=== PATIENT | female | born 1970 | race American Indian/Alaskan Native ===

== ENCOUNTER 2016-06-03 04:39 | Inpatient (IN) | payer SELFPAY ==
[2016-06-03] MEDS ORDERED: PROVENTIL IH ONE ×2 (04:59→06:24)
[2016-06-03] MEDS ORDERED: ATROVENT IH ONE ×2 (05:00→06:24)
[2016-06-03 05:47] LABS: Basophils % (Auto) 0.5 % (0.0-1.8); Eosinophils % (Auto) 2.6 % (0.0-4.3); Hematocrit 45.4 % (30.3-42.9); Hemoglobin 14.4 gm/dl (10.1-14.3); Mean Corpuscular HGB Conc 32 % (30-34); Mean Corpuscular Hemoglobin 28 pg (28-32); Mean Corpuscular Volume 87 fl (79-97); Platelet Count 185 K/mm3 (140-440); Red Blood Count 5.22 M/mm3 (3.65-5.03); Red Cell Distribution Width 14.7 % (13.2-15.2); White Blood Count 8.8 K/mm3 (4.5-11.0)
[2016-06-03 06:11] LABS: Anion Gap 18 mmol/L; BUN/Creatinine Ratio 5.55; Blood Urea Nitrogen 5 mg/dL (7-17); Calcium 8.8 mg/dL (8.4-10.2); Carbon Dioxide 22 mmol/L (22-30); Chloride 105.6 mmol/L (98-107); Glucose 144 mg/dL (65-100); Potassium 3.7 mmol/L (3.6-5.0); Sodium 142 mmol/L (137-145)
--- NOTE | 2016-06-03 06:29 | Emergency Department Report ---
HPI - General Chief Complaint: Dyspnea/Respdistress Time Seen by Provider: 06/03/16 06:17 - HPI HPI: Room 20 The patient is a 45-year-old female presenting with a chief complaint of shortness of breath. The patient states yesterday at 13:00 she developed wheezing and a cough productive of clear sputum the patient states she was recently diagnosed with asthma one week ago. The patient states she was unable to catch her breath and subsequently EMS was called. EMS states the patient had a room air sat of 89% upon arrival. The patient was administered magnesium sulfate 2 g IV and Solu-Medrol 125 mg IV. The patient is currently on BiPAP states she feels much improved from when her symptoms started. Patient denies any history of fever or chest pain Location: Lungs Duration: Constant since 13:00 yesterday Quality: Shortness of breath Severity: Moderate Modifying factors: [see above] Context: [see above] Mode of transportation: [not driving] ED Past Medical Hx - Past Medical History Previous Medical History?: Yes Hx Asthma: Yes (diagnosed 2016) - Surgical History Past Surgical History?: Yes - Family History Family history: no significant - Social History Smoking Status: Former Smoker (none times one month) Substance Use Type: None (denies illicit drug use), Alcohol (occasional) - Medications Home Medications: Home Medications Medication Instructions Recorded Confirmed Last Taken Type Albuterol Sulfate [Albuterol 0.63% 0.63 mg IH TID PRN #1 box 05/18/16 06/03/16 Unknown Rx NEBS] Albuterol Sulfate [Ventolin HFA] 2 puff INHALATION DAILY PRN #1 05/18/16 Unknown Rx hfa.[email or web address] MDD 10 puffs Ipratropium [Atrovent NEB] 0.5 mg IH Q8HRT #1 box 05/18/16 Unknown Rx ED Review of Systems ROS: Stated complaint: SUJEY Other details as noted in HPI Comment: All other systems reviewed and negative Constitutional: denies: chills, fever Eyes: denies: eye pain, eye discharge, vision change ENT: denies: ear pain, throat pain Respiratory: cough, shortness of breath, wheezing Cardiovascular: denies: chest pain, palpitations Endocrine: no symptoms reported Gastrointestinal: denies: abdominal pain, nausea, diarrhea Genitourinary: denies: urgency, dysuria, discharge Musculoskeletal: denies: back pain, joint swelling, arthralgia Skin: denies: rash, lesions Neurological: denies: headache, weakness, paresthesias Psychiatric: denies: anxiety, depression Hematological/Lymphatic: denies: easy bleeding, easy bruising Physical Exam - Physical Exam Vital Signs: Vital Signs 06/03/16 06/03/16 04:46 05:15 Temperature 98.6 F Pulse Rate 104 H 116 H Respiratory 29 H 38 H Rate Blood Pressure 127/85 130/83 O2 Sat by Pulse 100 98 Oximetry Physical Exam: GENERAL: The patient is well-developed well-nourished female sitting on stretcher receiving BiPAP resting comfortably. [] HEENT: Normocephalic. Atraumatic. Extraocular motions are intact. Patient has moist mucous membranes. NECK: Supple. Trachea midline There is no adenopathy noted. CHEST/LUNGS: Diffuse wheezing. HEART/CARDIOVASCULAR: Regular. There is tachycardia. There is no gallop rub or murmur. ABDOMEN: Abdomen is soft, nontender. Patient has normal bowel sounds. There is no abdominal distention. SKIN: There is no rash. There is no diaphoresis. NEURO: The patient is awake, alert, and oriented. The patient is cooperative. The patient has normal speech MUSCULOSKELETAL: There is no evidence of acute injury. ED Course Vital Signs 06/03/16 06/03/16 04:46 05:15 Temperature 98.6 F Pulse Rate 104 H 116 H Respiratory 29 H 38 H Rate Blood Pressure 127/85 130/83 O2 Sat by Pulse 100 98 Oximetry ED Medical Decision Making - Lab Data Result diagrams: 06/03/16 05:38 06/03/16 04:52 Laboratory Results - last 24 hr 06/03/16 06/03/16 04:52 05:38 WBC 8.8 RBC 5.22 H Hgb 14.4 H Hct 45.4 H MCV 87 MCH 28 MCHC 32 RDW 14.7 Plt Count 185 Lymph % (Auto) 13.9 [place] % (Auto) 4.1 Eos % (Auto) 2.6 Baso % (Auto) 0.5 Lymph # 1.2 [place] # 0.4 Eos # 0.2 Baso # 0.0 Seg Neutrophils % 78.9 H Seg Neutrophils # 6.9 Sodium 142 Potassium 3.7 Chloride 105.6 Carbon Dioxide 22 Anion Gap 18 BUN 5 L Creatinine 0.9 Estimated GFR > 60 BUN/Creatinine Ratio 5.55 Glucose 144 H Calcium 8.8 Troponin T < 0.010 - EKG Data -: EKG Interpreted by Me EKG shows normal: sinus rhythm Rate: normal - EKG Data When compared to previous EKG there are: previous EKG unavailable Interpretation: other (no ischemic changes seen) - Radiology Data Radiology results: image reviewed (chest x-ray) interpreted by me: Chest x-ray-no focal infiltrates, no pneumothorax - Differential Diagnosis COPD, asthma exacerbation, shortness of breath, ACS, pneumonia Critical care attestation.: If time is entered above; I have spent that time in minutes in the direct care of this critically ill patient, excluding procedure time. ED Disposition Clinical Impression: Acute asthma exacerbation, Difficulty breathing Disposition: OP ADMITTED IP TO THIS HOSP Is pt being admited?: Yes Does the pt Need Aspirin: Yes Condition: Fair Time of Disposition: 06:30 (hospitalist paged)
--- NOTE | 2016-06-03 07:17 | XRay Report ---
AP CHEST: HISTORY: Shortness of breath AP view of the chest demonstrates a normal mediastinal and cardiac contour with clear lungs and normal bony and soft tissue structures. IMPRESSION: Unremarkable AP chest. No change since 05/16/16.
--- NOTE | 2016-06-03 08:22 | Admit Criteria Form ---
Admission Criteria Documentation: ASTHMA Clinical Indications for Admission to Inpatient Care (Place 'X' for any and all applicable criteria): Admission is indicated for ANY ONE of the following (1)(2)(3)(4)(5): [ ]I. Absent or markedly diminished breath sounds (silent chest) [ ]II. Oxygen saturation < 92% [ ]III. PaCO2 = / > 42 mm Hg (5.6 kPa) [ ]IV. Peak expiratory flow rate < 40% of predicted or personal best after treatment. [ ]V. Peak expiratory flow rate < 33% of predicted or personal before after treatment [ ]. Change in mental status [ ]VII. Ventilatory support required [ ]VIII. PaO2 < 60 mm Hg (8.0 kPa) [ ]IX. Cyanosis [ ]X. Cardiac dysrhythmia (e.g., bradycardia) [ ]XI. Hemodynamic instability [ ]XII. Radiographic evidence of complication requiring inpatient treatment (e.g., pneumonia, pneumothorax) [X ]XIII. Inpatient admission required rather than observation care (also use Asthma: Observation Care guideline as appropriate) because of ANY ONE of the following: [X ]a) Respiratory finding that is severe or persistent (eg, dyspnea, tachypnea, accessory muscle use) [ ]b) Airflow measurements less than 60% of predicted or personal best that persist (e.g., over 24 hours) or worsen despite treatments [ ]c) Supplemental oxygen or respiratory treatments for over 24 hours that are performable only in acute inpatient setting [ ]d) Other condition, treatment or monitoring requiring inpatient admission. Extended stay beyond goal length of stay may be needed for (26)(27)(28): [ ]a) Severe respiratory failure (23) (29) (30) [ ]b) Secondary causes and complications (25) [ ]c) Status asthmaticus [ ]d) Chronic obstructive asthma [ ]e) Older patients (29) [ ]f) Slow resolution [ ]g) Clinically significant exacerbation of comorbidities (eg, kathy. heart failure, atrial fibrillation) The original [employer] content created by [email or web address] has been revised. The portions of the content which have been revised are identified through the use of italic text or in bold, and [employer] has neither reviewed nor approved the modified material. All other unmodified content is copyright [employer] Please see references footnoted in the original [facility] edition 2016 Admission Criteria Met: Yes
--- NOTE | 2016-06-03 09:07 | History and Physical Report ---
Medications and Allergies Allergies Allergy/AdvReac Type Severity Reaction Status Date / Time No Known Allergies Allergy Verified 02/28/16 00:13 Home Medications Medication Instructions Recorded Confirmed Last Taken Type Albuterol Sulfate [Albuterol 0.63% 0.63 mg IH TID PRN #1 box 05/18/16 06/03/16 Unknown Rx NEBS] Albuterol Sulfate [Ventolin HFA] 2 puff INHALATION DAILY PRN #1 05/18/16 Unknown Rx hfa.[email or web address] MDD 10 puffs Ipratropium [Atrovent NEB] 0.5 mg IH Q8HRT #1 box 05/18/16 Unknown Rx Active Meds: Active Medications Acetaminophen (Tylenol) 650 mg PO Q4H PRN PRN Reason: Pain MILD(1-3)/Fever >100.5/MALLORY Bisacodyl (Dulcolax) 10 mg NM QDAY PRN PRN Reason: Constipation unrelieved by MOM Magnesium Hydroxide (Milk Of Magnesia) 30 ml PO Q4H PRN PRN Reason: Constipation Exam - Constitutional Vitals: Temp Pulse Resp BP Pulse Ox 98.6 F 103 H 18 111/73 98 06/03/16 04:46 06/03/16 08:00 06/03/16 08:00 06/03/16 08:00 06/03/16 08:00 Results - Labs CBC & Chem 7: 06/03/16 05:38 06/03/16 04:52 Labs: Abnormal lab results 06/03/16 06/03/16 Range/Units 04:52 05:38 RBC 5.22 H (3.65-5.03) M/mm3 Hgb 14.4 H (10.1-14.3) gm/dl Hct 45.4 H (30.3-42.9) % Seg Neutrophils % 78.9 H (40.0-70.0) % BUN 5 L (7-17) mg/dL Glucose 144 H (65-100) mg/dL
[2016-06-03] MEDS ORDERED: ZOFRAN IV PRN (10:00)
[2016-06-03] MEDS ORDERED: TYLENOL PO PRN (10:00)
[2016-06-03] MEDS ORDERED: DULCOLAX PR PRN (10:00)
[2016-06-03] MEDS ORDERED: MILK OF MAGNESIA PO PRN (10:00)
[2016-06-03] MEDS ORDERED: PROVENTIL IH PRN (10:36)
[2016-06-03 12:46] LABS: ISTAT Base Excess -6; ISTAT PH 7.307 (7.35-7.45); ISTAT PO2 108 (80-105); ISTAT SO2 98; ISTAT TCO2 21
[2016-06-03] MEDS: DUONEB 0.5 MG-3 MG/3 ML SOLN IH SCH ×2 (13:20→20:25)
[2016-06-04] MEDS: DUONEB 0.5 MG-3 MG/3 ML SOLN IH SCH ×2 (09:46→14:18)
[2016-06-04 15:24] VITALS: BP 110/71
--- NOTE | 2016-06-04 16:42 | Discharge Summary ---
Providers - Providers Date of Admission: 06/03/16 09:04 Attending physician: TONYA CALLES Primary care physician: METAL LEAF LAYER Hospitalization Condition: Fair Disposition: STILL A PATIENT Exam - Constitutional Vitals: Temp Pulse Resp BP Pulse Ox 98.3 F 86 20 110/71 100 06/04/16 14:50 06/04/16 14:50 06/04/16 14:50 06/04/16 14:50 06/04/16 07:25 Plan Follow up with: PRIMARY CARE, [Primary Care Provider] - 3-5 Days Prescriptions: Azithromycin [Zithromax TAB] 250 mg PO QDAY #6 tablet Prednisone [predniSONE 10 mg (6-Day Pack, 21 Tabs)] 10 mg PO .TAPER #1 tab.ds.pk
== END 2016-06-04 17:55 | disposition home or self-care (01) | DRG 203 ==
LOC: ED 04:39 → 3A 09:04
PROVIDERS: ADMIT Internal Medicine; ATTEND Internal Medicine
PROC: 5A09357 Assistance with Respiratory Ventilation, Less than 24 Consecutive Hours, Continuous Positive Airway Pressure (ICD-10-PCS; principal; 2016-06-03)
DX: J45.901 Unspecified asthma with (acute) exacerbation (principal); Z87.891 Personal history of nicotine dependence
CPT/HCPCS: 36415; 36600; 71010; 80048; 82803; 84484; 85025; 85379; 93005; 93010; 94640; 94644; 94760; 99406; J2920

== ENCOUNTER 2016-06-11 15:58 | Emergency (ER) | payer SELFPAY ==
[2016-06-11 16:34] VITALS: BP 133/80
[2016-06-11] MEDS ORDERED: PROVENTIL IH ONE (20:22)
--- NOTE | 2016-06-11 20:53 | Emergency Department Report ---
HPI - General Chief Complaint: Dyspnea/Respdistress Time Seen by Provider: 06/11/16 20:22 - HPI HPI: 45-year-old Afro[place] female presents to the emergency department from home by EMS with a complaint of shortness of breath. Patient was found to have an oxygen saturation of 89% on room air. She was given 10 mg of albuterol, 125 mg of Solu-Medrol and placed on oxygen. Patient is now on the emergency department and has been multiple hours since his medications and says she is feeling better. She did not have any chest pain, fever, back pain, diaphoresis , nausea or vomiting. Patient does have a recent diagnosis of asthma. She was recently admitted to [facility] for the same symptoms. When she was discharged home she was given a prescription for steroids but never had it filled secondary to the cost. She has been using her albuterol inhaler and nebulized treatments at home without much relief. ED Past Medical Hx - Past Medical History Hx Congestive Heart Failure: No Hx Diabetes: No Hx Pulmonary Embolism: No Hx Sickle Cell Disease: No Hx Asthma: Yes Hx COPD: No Hx Tuberculosis: No Hx HIV: No - Social History Smoking Status: Never Smoker Substance Use Type: None - Medications Home Medications: Home Medications Medication Instructions Recorded Confirmed Last Taken Type Azithromycin [Zithromax TAB] 250 mg PO QDAY #6 tablet 06/04/16 06/11/16 Unknown Rx Prednisone [predniSONE 10 mg 10 mg PO .TAPER #1 tab.ds.pk 06/04/16 06/11/16 Unknown Rx (6-Day Pack, 21 Tabs)] Albuterol Sulfate [Albuterol 0.63% 0.63 mg IH TID PRN #1 box 06/11/16 Unknown Rx NEBS] Albuterol Sulfate [Ventolin HFA] 2 puff INHALATION DAILY PRN #1 06/11/16 Unknown Rx [email or web address] MDD 10 puffs Ipratropium [Atrovent NEB] 0.5 mg IH Q8HRT #1 box 06/11/16 Unknown Rx ED Review of Systems ROS: Stated complaint: SUJEY/ASTHMA Other details as noted in HPI Comment: All other systems reviewed and negative Constitutional: denies: chills, fever Eyes: denies: eye pain, eye discharge, vision change ENT: denies: ear pain, throat pain Respiratory: cough, shortness of breath, wheezing Cardiovascular: denies: chest pain, palpitations Gastrointestinal: denies: abdominal pain, nausea, diarrhea Genitourinary: denies: urgency, dysuria, discharge Musculoskeletal: denies: back pain, joint swelling, arthralgia Skin: denies: rash, lesions Neurological: denies: headache, weakness, paresthesias Physical Exam - Physical Exam Vital Signs: Vital Signs 06/11/16 06/11/16 06/11/16 16:30 17:30 17:33 Temperature 98 F Pulse Rate 122 H 110 H Respiratory 24 20 20 Rate Blood Pressure 133/80 O2 Sat by Pulse 92 100 100 Oximetry Physical Exam: GENERAL: The patient is well-developed well-nourished. HEENT: Normocephalic. Atraumatic. Extraocular motions are intact. Patient has moist mucous membranes. Pupils equal reactive to light bilaterally. NECK: Supple. Trachea is midline. CHEST/LUNGS: Mild to moderate wheezing throughout the chest. Mild tachypnea without accessory muscle use. No conversational dyspnea. There is no respiratory distress noted. HEART/CARDIOVASCULAR: Regular. There is mild tachycardia. There is no gallop rub or murmur. ABDOMEN: Abdomen is soft, nontender. Patient has normal bowel sounds. There is no abdominal distention. SKIN: There is no rash. There is no edema. There is no diaphoresis. NEURO: The patient is awake, alert, and oriented. The patient is cooperative. The patient has no focal neurologic deficits. The patient has normal speech. MUSCULOSKELETAL: There is no tenderness or deformity. There is no limitation range of motion. There is no evidence of acute injury. ED Course Vital Signs 06/11/16 06/11/16 06/11/16 16:30 17:30 17:33 Temperature 98 F Pulse Rate 122 H 110 H Respiratory 24 20 20 Rate Blood Pressure 133/80 O2 Sat by Pulse 92 100 100 Oximetry ED Medical Decision Making - Lab Data Result diagrams: 06/11/16 21:13 06/11/16 21:13 - Radiology Data Radiology results: image reviewed interpreted by me: Chest x-ray did not show any acute process. Heart is normal shape and size. No effusions. No pneumothorax. No signs of pneumonia seen. - Medical Decision Making This is a 45-year-old female presents to the emergency department with some shortness of breath and was found have some hypoxia. Patient is greatly improved after getting the breathing treatments and steroids in route and then even more improved after getting a second round of albuterol nebulized treatments here. A chest x-ray was done that does not show any pneumonia, pleural effusions, pneumothorax or any acute process. Patient's labs did not show any signs of infection, electrolyte or renal abnormalities. She has a negative troponin and a negative d-dimer. Patient had some hypoxia when she first got here with a 92% oxygen saturation on room air. It improved with some abdominal oxygen. Recently, upon one of her reevaluation, the oxygen was removed and the patient was ambulated around the emergency department. She was able to maintain 100% oxygen on pulse ox without any supplemental oxygen. Patient says she is feeling much better. Her wheezing and bronchospasm is greatly improved. The patient appears safe for discharge home at this time. She will follow-up with her physician at [facility]. She already has steroids waiting for her at the pharmacy to fill and take. She'll be given a refill of her albuterol treatments and an inhaler. She'll return to the ER with any worsening of her symptoms or any acute distress. Patient still does have some mild tachycardia but she has received multiple albuterol treatments and that is most likely the cause. - Differential Diagnosis asthma, bronchitis, pneumonia, PE, DE Critical Care Time: No Critical care attestation.: If time is entered above; I have spent that time in minutes in the direct care of this critically ill patient, excluding procedure time. ED Disposition Clinical Impression: Bronchospasm Acute asthma exacerbation Qualifiers: Asthma severity: unspecified severity Qualified Code(s): J45.901 - Unspecified asthma with (acute) exacerbation Disposition: DISCHARGED TO HOME OR SELFCARE Is pt being admited?: No Does the pt Need Aspirin: No Condition: Stable Instructions: Asthma (ED) Additional Instructions: Please follow-up with her primary care doctor in the next few days. Take the steroids that are waiting for you at the pharmacy. Return to the emergency department with any worsening of your symptoms or any acute distress. Prescriptions: Albuterol Sulfate [Albuterol 0.63% NEBS] 0.63 mg IH TID PRN #1 box PRN Reason: Wheezing Ipratropium [Atrovent NEB] 0.5 mg IH Q8HRT #1 box Albuterol Sulfate [Ventolin HFA] 2 puff INHALATION DAILY PRN #1 hfa.aer.ad MDD 10 puffs PRN Reason: Shortness Of Breath Referrals: PRIMARY CARE, [Primary Care Provider] - 3-5 Days Time of Disposition: 22:29
[2016-06-11 21:28] LABS: Hematocrit 44.3 % (30.3-42.9); Hemoglobin 14.3 gm/dl (10.1-14.3); Mean Corpuscular HGB Conc 32 % (30-34); Mean Corpuscular Hemoglobin 28 pg (28-32); Mean Corpuscular Volume 86 fl (79-97); Platelet Count 228 K/mm3 (140-440); Red Blood Count 5.13 M/mm3 (3.65-5.03); Red Cell Distribution Width 14.1 % (13.2-15.2); White Blood Count 5.2 K/mm3 (4.5-11.0)
[2016-06-11 22:07] LABS: Blood Urea Nitrogen 9 mg/dL (7-17); Carbon Dioxide 20 mmol/L (22-30); Chloride 99.9 mmol/L (98-107); Glucose 165 mg/dL (65-100); Potassium 3.8 mmol/L (3.6-5.0); Sodium 137 mmol/L (137-145)
[2016-06-11 22:17] LABS: Anion Gap 21 mmol/L
[2016-06-11 23:30] LABS: Basophils % (Manual) 0 % (0.0-1.8); Blastocytes % (Manual) 0 %; Eosinophils % (Manual) 0 % (0.0-4.3)
[2016-06-11 23:31] LABS: Diff Status Complete; Large Platelets 1+; Platelet Estimate Consistent w Auto; RBC Morphology Normal
--- NOTE | 2016-06-12 07:28 | XRay Report ---
ROUTINE CHEST, TWO VIEWS: HISTORY: Shortness of breath. The trachea, heart, mediastinal contour, lung senior and bony thorax are unremarkable. IMPRESSION: Unremarkable chest x-ray.
== END 2016-06-11 22:59 | disposition home or self-care (01) ==
LOC: ED 15:58
DX: J45.901 Unspecified asthma with (acute) exacerbation (principal)
CPT/HCPCS: 36415; 71020; 80048; 84484; 84703; 85007; 85025; 85379; 93005; 93010; 94640

== ENCOUNTER 2016-08-11 02:18 | Emergency (ER) | payer SELFPAY ==
[2016-08-11] MEDS ORDERED: PROVENTIL IH ONE ×2 (04:08→06:40)
[2016-08-11] MEDS ORDERED: DELTASONE PO ONE (04:08)
[2016-08-11] MEDS ORDERED: ATROVENT IH ONE ×2 (04:08→06:40)
[2016-08-11 06:19] VITALS: BP 120/70
[2016-08-11] MEDS ORDERED: NACL 0.9% 1000 ML 1,000 ML IV ONE (06:40)
--- NOTE | 2016-08-11 06:41 | Emergency Department Report ---
ED General Adult HPI - General Chief complaint: Adult Asthma Stated complaint: DIFFICULTY IN BREATHING Time Seen by Provider: 08/11/16 06:33 Source: patient, EMS, RN notes reviewed Mode of arrival: Stretcher Limitations: No Limitations - History of Present Illness Initial comments: This is a 45-year-old female. She has a past medical history of asthma, with multiple lifetime admissions, possible hypertension/elevated blood pressure. The patient is brought to the hospital by EMS for asthma exacerbation. Patient indicated to EMS that her asthma and shortness of breath acted up while she was at home. The patient thinks that she has mold at her home, and believes that this is irritating her asthma. EMS documents bilateral wheezing, with an O2 sat of 93%. Patient was given 5 mg of albuterol, 125 mg of Solu-Medrol, and 2 g of magnesium sulfate in the field. Upon arrival to the ER, patient still had wheezing, saturating well at 98%. The nursing staff reported to me that the patient had somewhat desaturated to 92 %, I would expect this after getting albuterol therapy secondary to VQ mismatch. She had no chest pain, there is no abdominal pain, there is no nausea , vomiting or diarrhea. The patient reports that she is not . -: Gradual Quality: other (improving with meds) Consistency: other (improving) Improves with: medication Worsens with: other (exposure to allergens) Associated Symptoms: cough, shortness of breath - Related Data Previous Rx's Medication Instructions Recorded Last Taken Type Prednisone [predniSONE 10 mg 10 mg PO .TAPER #1 tab.ds.pk 06/04/16 Unknown Rx (6-Day Pack, 21 Tabs)] Albuterol Sulfate [Albuterol 0.63% 0.63 mg IH TID PRN #1 box 06/11/16 Unknown Rx NEBS] Albuterol Sulfate [Ventolin HFA] 2 puff INHALATION DAILY PRN #1 06/11/16 Unknown Rx hfa.aer.ad MDD 10 puffs Ipratropium [Atrovent NEB] 0.5 mg IH Q8HRT #1 box 06/11/16 Unknown Rx guaiFENesin/CODEINE [Robitussin AC] 5 ml PO Q4H PRN #100 ml 07/03/16 Unknown Rx predniSONE [Deltasone] 20 mg PO BID #10 tab 07/03/16 Unknown Rx Albuterol Sulfate [Proair 90 mcg IH Q4HR PRN #2 aer.pow.ba 08/11/16 Unknown Rx Respiclick] Ipratropium [place] [Atrovent Hfa] 12.9 gm IH Q4HR #2 hfa.aer.ad 08/11/16 Unknown Rx predniSONE [Deltasone] 40 mg PO QDAY #8 tab 08/11/16 Unknown Rx Allergies Allergy/AdvReac Type Severity Reaction Status Date / Time No Known Allergies Allergy Verified 02/28/16 00:13 ED Review of Systems ROS: Stated complaint: DIFFICULTY IN BREATHING Other details as noted in HPI Constitutional: denies: fever Eyes: denies: vision change Respiratory: shortness of breath Cardiovascular: dyspnea on exertion Gastrointestinal: denies: vomiting Genitourinary: denies: as per HPI, dysuria Musculoskeletal: denies: back pain Skin: denies: lesions Neurological: denies: headache Psychiatric: as per HPI ED Past Medical Hx - Past Medical History Hx Congestive Heart Failure: No Hx Diabetes: No Hx Pulmonary Embolism: No Hx Sickle Cell Disease: No Hx Asthma: Yes Hx COPD: No Hx Tuberculosis: No Hx HIV: No Additional medical history: ptient is on Albuterol Nebulizer [place], Pro-air and an albuterrol Inhaler. As Home meds. - Social History Smoking Status: Former Smoker Substance Use Type: None - Medications Home Medications: Home Medications Medication Instructions Recorded Confirmed Last Taken Type Prednisone [predniSONE 10 mg 10 mg PO .TAPER #1 tab.ds.pk 06/04/16 06/11/16 Unknown Rx (6-Day Pack, 21 Tabs)] Albuterol Sulfate [Albuterol 0.63% 0.63 mg IH TID PRN #1 box 06/11/16 08/11/16 Unknown Rx NEBS] Albuterol Sulfate [Ventolin HFA] 2 puff INHALATION DAILY PRN #1 06/11/16 Unknown Rx hfa.aer.ad MDD 10 puffs Ipratropium [Atrovent NEB] 0.5 mg IH Q8HRT #1 box 06/11/16 08/11/16 Unknown Rx guaiFENesin/CODEINE [Robitussin AC] 5 ml PO Q4H PRN #100 ml 07/03/16 08/11/16 Unknown Rx predniSONE [Deltasone] 20 mg PO BID #10 tab 07/03/16 Unknown Rx Albuterol Sulfate [Proair 90 mcg IH Q4HR PRN #2 aer.pow.ba 08/11/16 Unknown Rx Respiclick] Ipratropium [place] [Atrovent Hfa] 12.9 gm IH Q4HR #2 hfa.aer.ad 08/11/16 Unknown Rx predniSONE [Deltasone] 40 mg PO QDAY #8 tab 08/11/16 Unknown Rx ED Physical Exam - General Limitations: No Limitations General appearance: alert, in no apparent distress - Head Head exam: Present: atraumatic, normocephalic - Eye Eye exam: Present: normal appearance, EOMI. Absent: nystagmus - ENT ENT exam: Present: normal exam, normal orophraynx, mucous membranes moist, normal external ear exam - Neck Neck exam: Present: normal inspection, full ROM. Absent: tenderness, meningismus - Respiratory Respiratory exam: Present: wheezes, rhonchi. Absent: respiratory distress - Cardiovascular Cardiovascular Exam: Present: normal rhythm, tachycardia, normal heart sounds. Absent: bradycardia, systolic murmur, diastolic murmur, rubs, gallop - GI/Abdominal GI/Abdominal exam: Present: soft, normal bowel sounds. Absent: distended, tenderness, guarding, rebound, rigid, pulsatile mass - Extremities Exam Extremities exam: Present: normal inspection, full ROM, normal capillary refill. Absent: tenderness, pedal edema, joint swelling, calf tenderness - Back Exam Back exam: Present: normal inspection, full ROM. Absent: tenderness, CVA tenderness (R), CVA tenderness (L), muscle spasm, paraspinal tenderness, vertebral tenderness - Neurological Exam Neurological exam: Present: alert, oriented X3, other (Extraocular movements intact. Tongue midline. No facial droop. Facial sensation intact to light touch in the V1, V2, V3 distribution bilaterally. 5 and 5 strength in 4 extremities.. Sensation is intact to light touch in 4 extremities.). Absent: motor sensory deficit - Psychiatric Psychiatric exam: Present: normal affect, normal mood - Skin Skin exam: Present: warm, dry, intact, normal color. Absent: rash ED Course Vital Signs 08/11/16 08/11/16 08/11/16 03:06 03:11 03:14 Temperature 98.3 F Pulse Rate 69 94 H 91 H Pulse Rate [ Bilateral] Respiratory 23 20 14 Rate Respiratory Rate [Bilateral ] Blood Pressure 112/73 114/70 Blood Pressure [Left] O2 Sat by Pulse 93 93 Oximetry 08/11/16 08/11/16 08/11/16 03:21 03:26 03:28 Temperature 98.6 F Pulse Rate 101 H 93 H Pulse Rate [ Bilateral] Respiratory 22 14 14 Rate Respiratory Rate [Bilateral ] Blood Pressure 114/70 Blood Pressure 114/70 [Left] O2 Sat by Pulse 93 93 93 Oximetry 08/11/16 08/11/16 08/11/16 03:30 03:35 03:41 Temperature Pulse Rate 95 H 98 H 98 H Pulse Rate [ Bilateral] Respiratory 19 23 19 Rate Respiratory Rate [Bilateral ] Blood Pressure 114/67 114/67 114/67 Blood Pressure [Left] O2 Sat by Pulse 94 89 95 Oximetry 08/11/16 08/11/16 08/11/16 03:45 03:51 03:55 Temperature Pulse Rate 92 H 96 H 96 H Pulse Rate [ Bilateral] Respiratory 19 20 18 Rate Respiratory Rate [Bilateral ] Blood Pressure 116/63 116/63 116/63 Blood Pressure [Left] O2 Sat by Pulse 95 95 96 Oximetry 08/11/16 08/11/16 08/11/16 04:00 04:05 04:11 Temperature Pulse Rate 93 H 94 H 94 H Pulse Rate [ Bilateral] Respiratory 16 16 22 Rate Respiratory Rate [Bilateral ] Blood Pressure 124/77 124/77 124/77 Blood Pressure [Left] O2 Sat by Pulse 97 97 97 Oximetry 08/11/16 08/11/16 08/11/16 04:15 04:19 04:21 Temperature Pulse Rate 91 H 89 Pulse Rate [ 91 H Bilateral] Respiratory 18 19 Rate Respiratory 18 Rate [Bilateral ] Blood Pressure 109/64 109/64 Blood Pressure [Left] O2 Sat by Pulse 96 97 Oximetry 08/11/16 08/11/16 08/11/16 04:25 04:30 04:35 Temperature Pulse Rate 90 91 H 97 H Pulse Rate [ Bilateral] Respiratory 18 19 18 Rate Respiratory Rate [Bilateral ] Blood Pressure 109/64 113/62 113/62 Blood Pressure [Left] O2 Sat by Pulse 97 96 97 Oximetry 08/11/16 08/11/16 08/11/16 04:41 04:45 04:50 Temperature Pulse Rate 93 H 93 H Pulse Rate [ 109 H Bilateral] Respiratory 18 12 Rate Respiratory 17 Rate [Bilateral ] Blood Pressure 113/62 131/66 Blood Pressure [Left] O2 Sat by Pulse 98 97 Oximetry 08/11/16 08/11/16 08/11/16 04:51 04:55 05:00 Temperature Pulse Rate 93 H 90 95 H Pulse Rate [ Bilateral] Respiratory 17 17 18 Rate Respiratory Rate [Bilateral ] Blood Pressure 131/66 131/66 120/72 Blood Pressure [Left] O2 Sat by Pulse 98 98 97 Oximetry 08/11/16 08/11/16 08/11/16 05:05 05:11 05:15 Temperature Pulse Rate 96 H 99 H 99 H Pulse Rate [ Bilateral] Respiratory 20 18 18 Rate Respiratory Rate [Bilateral ] Blood Pressure 120/72 120/72 122/68 Blood Pressure [Left] O2 Sat by Pulse 95 95 93 Oximetry 08/11/16 08/11/16 08/11/16 05:21 05:25 05:30 Temperature Pulse Rate 96 H 101 H 100 H Pulse Rate [ Bilateral] Respiratory 18 18 18 Rate Respiratory Rate [Bilateral ] Blood Pressure 122/68 122/68 126/67 Blood Pressure [Left] O2 Sat by Pulse 94 93 91 Oximetry 08/11/16 08/11/16 08/11/16 05:35 05:41 05:45 Temperature Pulse Rate 101 H 100 H 100 H Pulse Rate [ Bilateral] Respiratory 18 17 18 Rate Respiratory Rate [Bilateral ] Blood Pressure 126/67 126/67 118/71 Blood Pressure [Left] O2 Sat by Pulse 92 92 91 Oximetry 08/11/16 08/11/16 08/11/16 05:51 05:55 06:00 Temperature Pulse Rate 100 H 98 H 98 H Pulse Rate [ Bilateral] Respiratory 18 18 19 Rate Respiratory Rate [Bilateral ] Blood Pressure 118/71 118/71 118/69 Blood Pressure [Left] O2 Sat by Pulse 92 92 92 Oximetry 08/11/16 08/11/16 08/11/16 06:05 06:11 06:15 Temperature Pulse Rate 101 H 102 H 91 H Pulse Rate [ Bilateral] Respiratory 15 13 17 Rate Respiratory Rate [Bilateral ] Blood Pressure 118/69 118/69 120/70 Blood Pressure [Left] O2 Sat by Pulse 91 93 98 Oximetry 08/11/16 08/11/16 06:19 06:53 Temperature 98.7 F Pulse Rate 94 H Pulse Rate [ 87 Bilateral] Respiratory 22 Rate Respiratory 16 Rate [Bilateral ] Blood Pressure Blood Pressure 120/70 [Left] O2 Sat by Pulse 98 Oximetry - Reevaluation(s) Reevaluation #1: 08/11/16 07:13 Differential diagnosis: Asthma exacerbation, pneumonia, pneumonitis, bronchitis Assessment and plan: 45-year-old female with probable asthma exacerbation. She is still wheezing. Additional albuterol and Atrovent therapy ordered. No chest pain. Chest x-ray unremarkable. Reevaluation #2: 08/11/16 08:16 Patient reassess. Wheezing improved. Patient ambulates without desaturation. Saturating 98% while ambulating. Patient will be discharged with albuterol, Atrovent, steroids, instructions to follow up with outpatient pulmonary. ED Medical Decision Making - Lab Data Vital Signs 08/11/16 08/11/16 08/11/16 03:06 03:11 03:14 Temperature 98.3 F Pulse Rate 69 94 H 91 H Pulse Rate [ Bilateral] Respiratory 23 20 14 Rate Respiratory Rate [Bilateral ] Blood Pressure 112/73 114/70 Blood Pressure [Left] O2 Sat by Pulse 93 93 Oximetry 08/11/16 08/11/16 08/11/16 03:21 03:26 03:28 Temperature 98.6 F Pulse Rate 101 H 93 H Pulse Rate [ Bilateral] Respiratory 22 14 14 Rate Respiratory Rate [Bilateral ] Blood Pressure 114/70 Blood Pressure 114/70 [Left] O2 Sat by Pulse 93 93 93 Oximetry 08/11/16 08/11/16 08/11/16 03:30 03:35 03:41 Temperature Pulse Rate 95 H 98 H 98 H Pulse Rate [ Bilateral] Respiratory 19 23 19 Rate Respiratory Rate [Bilateral ] Blood Pressure 114/67 114/67 114/67 Blood Pressure [Left] O2 Sat by Pulse 94 89 95 Oximetry 08/11/16 08/11/16 08/11/16 03:45 03:51 03:55 Temperature Pulse Rate 92 H 96 H 96 H Pulse Rate [ Bilateral] Respiratory 19 20 18 Rate Respiratory Rate [Bilateral ] Blood Pressure 116/63 116/63 116/63 Blood Pressure [Left] O2 Sat by Pulse 95 95 96 Oximetry 08/11/16 08/11/16 08/11/16 04:00 04:05 04:11 Temperature Pulse Rate 93 H 94 H 94 H Pulse Rate [ Bilateral] Respiratory 16 16 22 Rate Respiratory Rate [Bilateral ] Blood Pressure 124/77 124/77 124/77 Blood Pressure [Left] O2 Sat by Pulse 97 97 97 Oximetry 08/11/16 08/11/16 08/11/16 04:15 04:19 04:21 Temperature Pulse Rate 91 H 89 Pulse Rate [ 91 H Bilateral] Respiratory 18 19 Rate Respiratory 18 Rate [Bilateral ] Blood Pressure 109/64 109/64 Blood Pressure [Left] O2 Sat by Pulse 96 97 Oximetry 08/11/16 08/11/16 08/11/16 04:25 04:30 04:35 Temperature Pulse Rate 90 91 H 97 H Pulse Rate [ Bilateral] Respiratory 18 19 18 Rate Respiratory Rate [Bilateral ] Blood Pressure 109/64 113/62 113/62 Blood Pressure [Left] O2 Sat by Pulse 97 96 97 Oximetry 08/11/16 08/11/16 08/11/16 04:41 04:45 04:50 Temperature Pulse Rate 93 H 93 H Pulse Rate [ 109 H Bilateral] Respiratory 18 12 Rate Respiratory 17 Rate [Bilateral ] Blood Pressure 113/62 131/66 Blood Pressure [Left] O2 Sat by Pulse 98 97 Oximetry 08/11/16 08/11/16 08/11/16 04:51 04:55 05:00 Temperature Pulse Rate 93 H 90 95 H Pulse Rate [ Bilateral] Respiratory 17 17 18 Rate Respiratory Rate [Bilateral ] Blood Pressure 131/66 131/66 120/72 Blood Pressure [Left] O2 Sat by Pulse 98 98 97 Oximetry 08/11/16 08/11/16 08/11/16 05:05 05:11 05:15 Temperature Pulse Rate 96 H 99 H 99 H Pulse Rate [ Bilateral] Respiratory 20 18 18 Rate Respiratory Rate [Bilateral ] Blood Pressure 120/72 120/72 122/68 Blood Pressure [Left] O2 Sat by Pulse 95 95 93 Oximetry 08/11/16 08/11/16 08/11/16 05:21 05:25 05:30 Temperature Pulse Rate 96 H 101 H 100 H Pulse Rate [ Bilateral] Respiratory 18 18 18 Rate Respiratory Rate [Bilateral ] Blood Pressure 122/68 122/68 126/67 Blood Pressure [Left] O2 Sat by Pulse 94 93 91 Oximetry 08/11/16 08/11/16 08/11/16 05:35 05:41 05:45 Temperature Pulse Rate 101 H 100 H 100 H Pulse Rate [ Bilateral] Respiratory 18 17 18 Rate Respiratory Rate [Bilateral ] Blood Pressure 126/67 126/67 118/71 Blood Pressure [Left] O2 Sat by Pulse 92 92 91 Oximetry 08/11/16 08/11/16 08/11/16 05:51 05:55 06:00 Temperature Pulse Rate 100 H 98 H 98 H Pulse Rate [ Bilateral] Respiratory 18 18 19 Rate Respiratory Rate [Bilateral ] Blood Pressure 118/71 118/71 118/69 Blood Pressure [Left] O2 Sat by Pulse 92 92 92 Oximetry 08/11/16 08/11/16 08/11/16 06:05 06:11 06:15 Temperature Pulse Rate 101 H 102 H 91 H Pulse Rate [ Bilateral] Respiratory 15 13 17 Rate Respiratory Rate [Bilateral ] Blood Pressure 118/69 118/69 120/70 Blood Pressure [Left] O2 Sat by Pulse 91 93 98 Oximetry 08/11/16 08/11/16 06:19 06:53 Temperature 98.7 F Pulse Rate 94 H Pulse Rate [ 87 Bilateral] Respiratory 22 Rate Respiratory 16 Rate [Bilateral ] Blood Pressure Blood Pressure 120/70 [Left] O2 Sat by Pulse 98 Oximetry - EKG Data 08/11/16 07:14 normal sinus, 91 bpm, normal axis, QTC 472 ms, T wave inversions 3 and aVF, atrial enlargement, not morphologically consistent with STEMI. - Radiology Data Radiology results: image reviewed interpreted by me: X-ray of the chest is negative for acute disease Critical care attestation.: If time is entered above; I have spent that time in minutes in the direct care of this critically ill patient, excluding procedure time. ED Disposition Clinical Impression: Acute asthma exacerbation Disposition: DISCHARGED TO HOME OR SELFCARE Is pt being admited?: No Does the pt Need Aspirin: No Condition: Stable Instructions: Asthma (ED) Additional Instructions: Take a breathing medication as directed. Specifically use the breathing medicine every 4 hours for the next 5 days. Take the steroids as directed. Follow up with a primary care doctor or a data specialist within the next week to [address] Calderón is a local primary care doctor. Dr. Gibson is a local data specialist. Return to the ER right away with worsening wheezing, shortness of breath, intractable nausea or vomiting, severe pain, inability to tolerate liquid feeds. Prescriptions: Albuterol Sulfate [Proair Respiclick] 90 mcg IH Q4HR PRN #2 aer.pow.ba PRN Reason: Wheezing Ipratropium [place] [Atrovent Hfa] 12.9 gm IH Q4HR #2 hfa.aer.ad predniSONE [Deltasone] 40 mg PO QDAY #8 tab Referrals: PRIMARY CARE, [Primary Care Provider] - 3-5 Days DELIA CALDERÓN MD [Staff Physician] - 3-5 Days HEATH MUELLER MD [Staff Physician] - 3-5 Days
--- NOTE | 2016-08-11 07:26 | XRay Report ---
AP CHEST: HISTORY: Difficulty breathing AP view of the chest demonstrates a normal mediastinal and cardiac contour with clear lungs and normal bony and soft tissue structures. IMPRESSION: Unremarkable AP chest.
== END 2016-08-11 08:30 | disposition home or self-care (01) ==
LOC: ED 02:18
DX: J45.901 Unspecified asthma with (acute) exacerbation (principal); Z87.891 Personal history of nicotine dependence
CPT/HCPCS: 71010; 93005; 93010; 94640; 96360; 96361; 99284; J7030; J7512

== ENCOUNTER 2017-04-16 17:02 | Emergency (ER) | payer OTHER ==
[2017-04-16] MEDS ORDERED: PROVENTIL IH ONE ×3 (17:36→20:48)
[2017-04-16 18:19] LABS: Basophils % (Auto) 0.9 % (0.0-1.8); Eosinophils % (Auto) 3.3 % (0.0-4.3); Hematocrit 44.2 % (30.3-42.9); Hemoglobin 14.3 gm/dl (10.1-14.3); Mean Corpuscular HGB Conc 32 % (30-34); Mean Corpuscular Hemoglobin 28 pg (28-32); Mean Corpuscular Volume 87 fl (79-97); Platelet Count 185 K/mm3 (140-440); Red Blood Count 5.11 M/mm3 (3.65-5.03); Red Cell Distribution Width 16.1 % (13.2-15.2); White Blood Count 6.9 K/mm3 (4.5-11.0)
[2017-04-16 18:32] LABS: Anion Gap 18 mmol/L; BUN/Creatinine Ratio 14; Blood Urea Nitrogen 10 mg/dL (7-17); Calcium 8.9 mg/dL (8.4-10.2); Carbon Dioxide 23 mmol/L (22-30); Chloride 101.5 mmol/L (98-107); Glucose 143 mg/dL (65-100); Potassium 3.5 mmol/L (3.6-5.0); Sodium 139 mmol/L (137-145)
[2017-04-16] MEDS ORDERED: ROBITUSSIN AC PO ONE (20:00)
--- NOTE | 2017-04-16 20:12 | Emergency Department Report ---
HPI - General Chief Complaint: Dyspnea/Respdistress Time Seen by Provider: 04/16/17 18:22 - HPI HPI: This is a 46 year-old female who presents to the emergency department via EMS from home with complaint of a few days of shortness of breath , wheezing and a mixed dry and productive Cough. The patient has a history of asthma but says that she has been out of her nebulizer treatments. She does not currently have a primary care physician. She received albuterol, magnesium and Solu-Medrol in route and says that she already got some relief. She denies any chest pain, fever, nausea, vomiting, back pain or diaphoresis. No recent travel or sick contacts at home. She denies any tobacco or illicit drug use or abuse. ED Past Medical Hx - Past Medical History Hx Congestive Heart Failure: No Hx Diabetes: No Hx Pulmonary Embolism: No Hx Sickle Cell Disease: No Hx Asthma: Yes Hx COPD: No Hx Tuberculosis: No Hx HIV: No Additional medical history: ptient is on Albuterol Nebulizer [place], Pro-air and an albuterrol Inhaler. As Home meds. - Social History Smoking Status: Never Smoker Substance Use Type: None - Medications Home Medications: Home Medications Medication Instructions Recorded Confirmed Last Taken Type Budesonide [Pulmicort Respules] 0.5 mg IH Q12HRT #1 nebu 09/11/16 Unknown Rx ALBUTEROL Inhaler [ProAir HFA 2 puff IH QID PRN #1 inhalation 04/16/17 Unknown Rx Inhaler] ALBUTEROL NEB's [Proventil 0.083% 2.5 mg IH TIDRT #1 nebu 04/16/17 Unknown Rx NEBS] guaiFENesin/CODEINE [Robitussin AC] 5 ml PO Q6H PRN #100 ml 04/16/17 Unknown Rx predniSONE [Deltasone] 40 mg PO QDAY #5 tab 04/16/17 Unknown Rx ED Review of Systems ROS: Stated complaint: DIFFICULTY BREATHING Other details as noted in HPI Comment: All other systems reviewed and negative Constitutional: denies: chills, fever Eyes: denies: eye pain, eye discharge, vision change ENT: denies: ear pain, throat pain Respiratory: cough, shortness of breath, wheezing Cardiovascular: denies: chest pain, palpitations Gastrointestinal: denies: abdominal pain, nausea, diarrhea Genitourinary: denies: urgency, dysuria, discharge Musculoskeletal: denies: back pain, joint swelling, arthralgia Skin: denies: rash, lesions Neurological: denies: headache, weakness, paresthesias Physical Exam - Physical Exam Vital Signs: Vital Signs 04/16/17 04/16/17 04/16/17 17:13 17:22 17:30 Temperature 98.3 F Pulse Rate 96 H 94 H Respiratory 25 H 22 Rate Blood Pressure 154/86 135/80 Blood Pressure [Left] O2 Sat by Pulse 100 96 94 Oximetry 04/16/17 04/16/17 04/16/17 17:35 18:00 18:30 Temperature 98.3 F Pulse Rate 96 H 102 H 101 H Respiratory 20 17 23 Rate Blood Pressure 147/72 118/64 Blood Pressure 154/86 [Left] O2 Sat by Pulse 96 99 100 Oximetry 04/16/17 04/16/17 04/16/17 19:00 19:20 19:30 Temperature Pulse Rate 101 H Respiratory 25 H 16 Rate Blood Pressure 130/79 137/92 Blood Pressure [Left] O2 Sat by Pulse 97 98 Oximetry 04/16/17 20:00 Temperature Pulse Rate 106 H Respiratory 18 Rate Blood Pressure 117/57 Blood Pressure [Left] O2 Sat by Pulse 97 Oximetry Physical Exam: GENERAL: The patient is well-developed well-nourished. HENT: Normocephalic. Atraumatic. Patient has moist mucous membranes. EYES: Extraocular motions are intact. Pupils equal reactive to light bilaterally. NECK: Supple. Trachea is midline. CHEST/LUNGS: Mild to moderate wheezing throughout the chest. There is mild tachypnea but no excessive muscle use. The patient has a hacking dry cough heard during examination. There is no respiratory distress noted. HEART/CARDIOVASCULAR: Regular. There is no tachycardia. There is no gallop rub or murmur. ABDOMEN: Abdomen is soft, nontender. Patient has normal bowel sounds. There is no abdominal distention. SKIN: Skin is warm and dry. NEURO: The patient is awake, alert, and oriented. The patient is cooperative. The patient has no focal neurologic deficits. The patient has normal speech. MUSCULOSKELETAL: There is no tenderness or deformity. There is no limitation range of motion. There is no evidence of acute injury. ED Course Vital Signs 1104/16/17 04/16/17 17:13 17:22 17:30 Temperature 98.3 F Pulse Rate 96 H 94 H Respiratory 25 H 22 Rate Blood Pressure 154/86 135/80 Blood Pressure [Left] O2 Sat by Pulse 100 96 94 Oximetry 04/16/17 04/16/17 04/16/17 17:35 18:00 18:30 Temperature 98.3 F Pulse Rate 96 H 102 H 101 H Respiratory 20 17 23 Rate Blood Pressure 147/72 118/64 Blood Pressure 154/86 [Left] O2 Sat by Pulse 96 99 100 Oximetry 04/16/17 04/16/17 04/16/17 19:00 19:20 19:30 Temperature Pulse Rate 101 H Respiratory 25 H 16 Rate Blood Pressure 130/79 137/92 Blood Pressure [Left] O2 Sat by Pulse 97 98 Oximetry 04/16/17 20:00 Temperature Pulse Rate 106 H Respiratory 18 Rate Blood Pressure 117/57 Blood Pressure [Left] O2 Sat by Pulse 97 Oximetry ED Medical Decision Making - Lab Data Result diagrams: 04/16/17 17:57 04/16/17 17:57 - EKG Data -: EKG Interpreted by Me EKG shows normal: sinus rhythm, axis, intervals, QRS complexes, ST-T waves Rate: normal - EKG Data When compared to previous EKG there are: previous EKG unavailable Interpretation: normal EKG - Radiology Data Radiology results: image reviewed interpreted by me: Chest x-ray does not show any acute process. There are no pleural effusions, obvious pneumonia and there is no pneumothorax. - Medical Decision Making 46-year-old female with a history of asthma presents with what appears to be an asthma exacerbation with bronchitis. Labs are mostly unremarkable. Chest x- ray does not show any pneumonia or any other acute process. She was given slightly Medrol and magnesium in route and was artificially feeling better after these medications and a DuoNeb. She was given some Robitussin-AC for her cough and another 1 or 2 breathing treatments while in the emergency department. She was reevaluated multiple times over multiple hours and says she is feeling better. She will go home with a refill of the albuterol inhaler and nebulizer as well as a 5 day course of steroids and Robitussin-AC for the cough. She was given referrals for both private and clinic primary care physician's. She will return to the ER with any worsening of her symptoms or any acute distress. - Differential Diagnosis asthma, pneumonia, bronchitis, URI Critical Care Time: No Critical care attestation.: If time is entered above; I have spent that time in minutes in the direct care of this critically ill patient, excluding procedure time. ED Disposition Clinical Impression: Bronchitis Acute asthma exacerbation Qualifiers: Asthma severity: unspecified severity Asthma persistence: unspecified Qualified Code(s): J45.901 - Unspecified asthma with (acute) exacerbation Disposition: - TO HOME OR SELFCARE Is pt being admited?: No Condition: Stable Instructions: Asthma (ED), Chronic Bronchitis (ED) Additional Instructions: Please follow up with a primary care physician in the next few days. Return to the emergency Department with any worsening of her symptoms or any acute distress. Prescriptions: ALBUTEROL Inhaler [ProAir HFA Inhaler] 2 puff IH QID PRN #1 inhalation PRN Reason: Shortness Of Breath guaiFENesin/CODEINE [Robitussin AC] 5 ml PO Q6H PRN #100 ml PRN Reason: Cough predniSONE [Deltasone] 40 mg PO QDAY #5 tab ALBUTEROL NEB's [Proventil 0.083% NEBS] 2.5 mg IH TIDRT #1 nebu Referrals: PRIMARY MD CAIO [Primary Care Provider] - 3-5 Days NIALL URBIE MD [Staff Physician] - 3-5 Days [facility] [Outside] - 3-5 Days Time of Disposition: 22:50
[2017-04-16 23:34] VITALS: BP 116/61
--- NOTE | 2017-04-17 07:18 | XRay Report ---
ROUTINE CHEST, TWO VIEWS: HISTORY: Shortness of breath. The trachea, heart, mediastinal contour, lung senior and bony thorax are unremarkable. No significant change since 09/09/16. IMPRESSION: Unremarkable chest x-ray.
== END 2017-04-16 23:36 | disposition home or self-care (01) ==
LOC: ED 17:02
DX: J45.901 Unspecified asthma with (acute) exacerbation (principal)
CPT/HCPCS: 36415; 71020; 80048; 84484; 85025; 93005; 93010; 94640

== ENCOUNTER 2017-04-25 12:51 | Inpatient (IN) | payer OTHER ==
[2017-04-25 14:01] LABS: Basophils % (Auto) 0.7 % (0.0-1.8); Eosinophils % (Auto) 1.3 % (0.0-4.3); Hemoglobin 14.5 gm/dl (10.1-14.3); Mean Corpuscular HGB Conc 32 % (30-34); Mean Corpuscular Hemoglobin 28 pg (28-32); Mean Corpuscular Volume 87 fl (79-97); Red Blood Count 5.17 M/mm3 (3.65-5.03); Red Cell Distribution Width 15.5 % (13.2-15.2); White Blood Count 10.8 K/mm3 (4.5-11.0)
[2017-04-25 14:07] LABS: Platelet Count 167 K/mm3 (140-440)
[2017-04-25 14:11] LABS: Anion Gap 20 mmol/L; BUN/Creatinine Ratio 10; Blood Urea Nitrogen 8 mg/dL (7-17); Calcium 8.2 mg/dL (8.4-10.2); Carbon Dioxide 21 mmol/L (22-30); Chloride 103.7 mmol/L (98-107); Glucose 127 mg/dL (65-100); Potassium 3.8 mmol/L (3.6-5.0); Sodium 141 mmol/L (137-145)
[2017-04-25] MEDS ORDERED: PROVENTIL IH ONE ×4 (14:30→17:10)
[2017-04-25] MEDS ORDERED: ATROVENT IH ONE (14:30)
[2017-04-25] MEDS ORDERED: TESSALON PERLES PO ONE (14:39)
--- NOTE | 2017-04-25 14:45 | XRay Report ---
FINAL REPORT PROCEDURE: XR CHEST ROUTINE 2V TECHNIQUE: PA and lateral views HISTORY: Shortness of breath COMPARISON: None FINDINGS: The trachea is midline. The heart is normal in size. The lungs are clear. There is no evident pneumothorax or pleural fluid. The thoracic cage is intact. IMPRESSION: No radiographically evident acute cardiopulmonary disease
--- NOTE | 2017-04-25 19:30 | Emergency Department Report ---
ED Shortness of Breath HPI - General Chief Complaint: Dyspnea/Respdistress Stated Complaint: SUJEY Time Seen by Provider: 04/25/17 14:29 Source: EMS Mode of arrival: Stretcher Limitations: No Limitations - History of Present Illness Initial Comments: 46-year-old female with past medical history asthma with no previous intubations presents to the hospital pain shortness of breath times several days it increased today. Patient had 2 ambulated visits to the home. The first time she received a nebulized treatment with improvement. Upon walking up the stairs symptoms worsened and they will call back to the home. Patient did receive magnesium 2 g and Solu-Medrol 125 mg. Initially patient felt better but his symptoms returned with significant wheezing in the ED requiring additional nebulized treatment. Patient complains of moderate sternal chest pain worse with palpation, cough, and inspiration. Although patient denies abuse intubation she has required BiPAP therapy in the past - Related Data Previous Rx's Medication Instructions Recorded Last Taken Type Budesonide [Pulmicort Respules] 0.5 mg IH Q12HRT #1 nebu 09/11/16 Unknown Rx ALBUTEROL Inhaler [ProAir HFA 2 puff IH QID PRN #1 inhalation 04/16/17 Unknown Rx Inhaler] ALBUTEROL NEB's [Proventil 0.083% 2.5 mg IH TIDRT #1 nebu 04/16/17 Unknown Rx NEBS] guaiFENesin/CODEINE [Robitussin AC] 5 ml PO Q6H PRN #100 ml 04/16/17 Unknown Rx predniSONE [Deltasone] 40 mg PO QDAY #5 tab 04/16/17 Unknown Rx Allergies Allergy/AdvReac Type Severity Reaction Status Date / Time No Known Allergies Allergy Verified 04/25/17 13:00 ED Review of Systems ROS: Stated complaint: SUJEY Other details as noted in HPI Comment: All other systems reviewed and negative Other: Constitutional: No fevers chills Eyes: No eye pain visual changes ENT: No ear pain or throat pain Neck: Denies pain Respiratory: As per HPI Cardiovascular: Sternal chest pain GI: Denies abdominal pain, nausea, vomiting, diarrhea : Denies dysuria Musculoskeletal: Denies back pain, joint swelling Skin: Denies rash, lesions, erythema Neurologic: Denies headache, numbness, weakness Psychiatric: Denies suicidal ideation, hallucinations Hematological/lymphatic: Denies easy bruising, lymphadenopathy ED Past Medical Hx - Past Medical History Hx Congestive Heart Failure: No Hx Diabetes: No Hx Pulmonary Embolism: No Hx Sickle Cell Disease: No Hx Asthma: Yes Hx COPD: No Hx Tuberculosis: No Hx HIV: No Additional medical history: ptient is on Albuterol Nebulizer [place], Pro-air and an albuterrol Inhaler. As Home meds. - Social History Smoking Status: Current Every Day Smoker - Medications Home Medications: Home Medications Medication Instructions Recorded Confirmed Last Taken Type Budesonide [Pulmicort Respules] 0.5 mg IH Q12HRT #1 nebu 09/11/16 Unknown Rx ALBUTEROL Inhaler [ProAir HFA 2 puff IH QID PRN #1 inhalation 04/16/17 Unknown Rx Inhaler] ALBUTEROL NEB's [Proventil 0.083% 2.5 mg IH TIDRT #1 nebu 04/16/17 Unknown Rx NEBS] guaiFENesin/CODEINE [Robitussin AC] 5 ml PO Q6H PRN #100 ml 04/16/17 Unknown Rx predniSONE [Deltasone] 40 mg PO QDAY #5 tab 04/16/17 Unknown Rx ED Physical Exam - General Limitations: No Limitations - Other Other exam information: General: No limitations, patient is alert in no acute distress Head exam: Atraumatic, normocephalic Eyes exam: Normal appearance ENT: Moist mucous membrane, normal oropharynx Neck exam: Normal inspection, full range of motion, no meningismus nontender Respiratory exam: Patient has frequent dry cough on examination with difficulty speaking with associated wheezing. Positive dyspnea, moderate accessory muscle use Cardiovascular: Tachycardia regular rhythm Abdomen: Soft, nondistended, and nontender, with normal bowel sounds, no rebound, or guarding Extremity: Full range of motion normal inspection no deformity, no calf tenderness or edema Back: Normal Inspection, full range of motion, no tenderness Neurologic: Alert, oriented x3, cranial nerves intact, no motor or sensory deficit Psychiatric: normal affect, normal mood Skin: Warm, dry, intact ED Course Vital Signs 04/25/17 04/25/17 04/25/17 13:29 13:30 14:38 Pulse Rate 112 H Pulse Rate [ 113 H Throughout] Respiratory 20 20 Rate Respiratory 22 Rate [ Throughout] Blood Pressure 135/74 [Right] O2 Sat by Pulse 94 Oximetry 04/25/17 04/25/17 04/25/17 15:06 16:05 16:56 Pulse Rate 74 121 H Pulse Rate [ 116 H Throughout] Respiratory 22 20 Rate Respiratory 20 Rate [ Throughout] Blood Pressure 115/62 [Right] O2 Sat by Pulse 94 97 Oximetry 04/25/17 19:16 Pulse Rate 119 H Pulse Rate [ Throughout] Respiratory 18 Rate Respiratory Rate [ Throughout] Blood Pressure 115/74 [Right] O2 Sat by Pulse 97 Oximetry - Reevaluation(s) Reevaluation #1: 04/25/17 19:36 Patient in the ED for several hours receiving additional nebulized treatments with improvement in symptoms but persistent wheezing. She did not feel well enough to return home. Antibiotics ordered ED Medical Decision Making - Lab Data Result diagrams: 04/25/17 13:34 04/25/17 13:34 Lab Results 04/25/17 04/25/17 Range/Units 13:34 13:34 WBC 10.8 (4.5-11.0) K/mm3 RBC 5.17 H (3.65-5.03) M/mm3 Hgb 14.5 H (10.1-14.3) gm/dl Hct 45.0 H (30.3-42.9) % MCV 87 (79-97) fl MCH 28 (28-32) pg MCHC 32 (30-34) % RDW 15.5 H (13.2-15.2) % Plt Count 167 (140-440) K/mm3 Lymph % (Auto) 12.4 L (13.4-35.0) % [place] % (Auto) 3.2 (0.0-7.3) % Eos % (Auto) 1.3 (0.0-4.3) % Baso % (Auto) 0.7 (0.0-1.8) % Lymph # 1.3 (1.2-5.4) K/mm3 [place] # 0.3 (0.0-0.8) K/mm3 Eos # 0.1 (0.0-0.4) K/mm3 Baso # 0.1 (0.0-0.1) K/mm3 Seg Neutrophils % 82.4 H (40.0-70.0) % Seg Neutrophils # 8.9 H (1.8-7.7) K/mm3 Sodium 141 (137-145) mmol/L Potassium 3.8 (3.6-5.0) mmol/L Chloride 103.7 (98-107) mmol/L Carbon Dioxide 21 L (22-30) mmol/L Anion Gap 20 mmol/L BUN 8 (7-17) mg/dL Creatinine 0.8 (0.7-1.2) mg/dL Estimated GFR > 60 ml/min BUN/Creatinine Ratio 10 % Glucose 127 H (65-100) mg/dL Calcium 8.2 L (8.4-10.2) mg/dL Troponin T < 0.010 (0.00-0.029) ng/mL - EKG Data -: EKG Interpreted by Me (biatrial enlargement) EKG shows normal: sinus rhythm, axis (98), QRS complexes (87), ST-T waves ( lateral and inferior flat T waves) Rate: normal (94) - EKG Data When compared to previous EKG there are: no significant change (compared to ) - Radiology Data Radiology results: report reviewed (chest x-ray: No acute findings) - Medical Decision Making Even though patient has improved to 80 treatments he still has persistent wheezing and not well enough to go home. She'll be covered with antibiotics for acute bronchitis and admitted to the hospital for further treatment - Differential Diagnosis pneumonia, bronchitis, asthma Critical care attestation.: If time is entered above; I have spent that time in minutes in the direct care of this critically ill patient, excluding procedure time. ED Disposition Clinical Impression: Asthma with status asthmaticus in adult, Acute bronchitis Disposition: 09 OP ADMIT IP TO THIS HOSP Is pt being admited?: Yes Condition: Stable Time of Disposition: 19:30 (Dr Gonzalez/hosp)
[2017-04-25] MEDS ORDERED: ZITHROMAX 500 MG in NACL 0.9% 250ML 250 ML IV ONE (20:30)
[2017-04-25] MEDS ORDERED: TYLENOL PO PRN (21:56)
[2017-04-25] MEDS ORDERED: DULCOLAX PR PRN (21:56)
[2017-04-25] MEDS ORDERED: AMBIEN PO PRN (21:56)
[2017-04-25] MEDS ORDERED: MILK OF MAGNESIA PO PRN (21:56)
[2017-04-25] MEDS ORDERED: PERCOCET 5/325 PO PRN (21:56)
[2017-04-25] MEDS ORDERED: ZOFRAN IV PRN (21:56)
[2017-04-25] MEDS ORDERED: MORPHINE IV PRN (21:56)
--- NOTE | 2017-04-25 21:56 | Event Note ---
Date: 04/25/17 See dictated H/p in reports Acute Asthma exacerbation
[2017-04-25] MEDS ORDERED: DUONEB *Not for PRN Use IH (21:57)
[2017-04-25] MEDS: DUONEB *Not for PRN Use IH SCH (22:39)
[2017-04-26] MEDS: LEVAQUIN 750MG/150ML 750 MG/150 ML BAG IV SCH ×2 (01:07→10:43)
[2017-04-26] MEDS: PEPCID PO SCH ×3 (01:09→21:32)
[2017-04-26] MEDS: DUONEB *Not for PRN Use IH SCH ×4 (03:02→21:12)
[2017-04-26 07:04] LABS: Hematocrit 39.9 % (30.3-42.9); Hemoglobin 12.9 gm/dl (10.1-14.3); Mean Corpuscular HGB Conc 32 % (30-34); Mean Corpuscular Hemoglobin 28 pg (28-32); Mean Corpuscular Volume 86 fl (79-97); Platelet Count 228 K/mm3 (140-440); Red Blood Count 4.63 M/mm3 (3.65-5.03); Red Cell Distribution Width 15.6 % (13.2-15.2); White Blood Count 17.1 K/mm3 (4.5-11.0)
[2017-04-26 07:27] LABS: Anion Gap 17 mmol/L; BUN/Creatinine Ratio 13; Blood Urea Nitrogen 9 mg/dL (7-17); Calcium 8.6 mg/dL (8.4-10.2); Carbon Dioxide 22 mmol/L (22-30); Chloride 105.9 mmol/L (98-107); Glucose 131 mg/dL (65-100); Potassium 4.2 mmol/L (3.6-5.0); Sodium 141 mmol/L (137-145)
--- NOTE | 2017-04-26 07:48 | History and Physical Report ---
CHIEF COMPLAINT: Shortness of breath for 1 week. HISTORY OF PRESENT ILLNESS: A 46-year-old female with past medical history of asthma comes in for shortness of breath of 1-week duration. Not responding to nebulizer treatments at home. The patient has exertional dyspnea and COPD. The patient received multiple nebulizer treatments in the ER along with magnesium and IV Solu-Medrol 125 with no adequate response. The patient is being admitted because of the inadequate response to ER treatment. The patient also has mucoid sputum. No yellow sputum. No fever, no chills. PAST MEDICAL HISTORY: Significant for asthma, obesity. PAST SURGICAL HISTORY: None. SOCIAL HISTORY: Currently smokes over a pack a day. FAMILY HISTORY: Significant for hypertension. REVIEW OF SYSTEMS: Significant for increasing wheezing and shortness of breath and cough which is productive of mucoid sputum. Otherwise, review of systems is essentially negative. A 14-point review of systems was done. PHYSICAL EXAMINATION: GENERAL: Young female, cooperative during examination, obese. VITAL SIGNS: Blood pressure is 115/62, sats are 96, temperature 97.7, pulse is 87-114, respirations 16-20. HEENT: Unremarkable. Pupils are equal and reactive. NECK: Supple, no lymphadenopathy, no thyromegaly. LUNGS: Bilateral inspiratory and expiratory rhonchi present. Diminished air entry present. CARDIOVASCULAR: S1-S2 heard. No gallop, no murmur, no rub. Apical impulse in the left fifth intercostal space and midclavicular line. ABDOMEN: Soft and benign. No hepatosplenomegaly, no guarding, no rigidity. Hernial orifices are normal. EXTREMITIES: Good pedal pulses. No pedal edema. CENTRAL NERVOUS SYSTEM: Alert and oriented x 4, nonfocal exam. SKIN: Normal. LABORATORY DATA: White count is 10,800, H and H is 14.5 and 45. Sodium is 141, potassium is 3.8, chloride is 103, BUN and creatinine of 8 and 0.8, glucose is 127, calcium is 8.2. Chest x-ray, no acute findings. ASSESSMENT AND PLAN: 1. Acute asthma exacerbation. Not responding to outpatient treatment and Emergency Room treatment. The patient started on nebulizer treatments q.6 round the clock and q.3 p.r.n. The patient also started on IV Solu-Medrol, IV Zithromax, and IV Levaquin. The patient was started on methylprednisone at 60 mg q.8. Zithromax was stopped. Levaquin to cover both gram-positives and gram negatives and atypicals 2. Morbid obesity. The patient was counseled. 3. Deep venous thrombosis prophylaxis with Lovenox 40 mg subcutaneously daily. JOB# [id number] VSM/NTS
[2017-04-26 08:44] LABS: Basophils % (Manual) 0 % (0.0-1.8); Blastocytes % (Manual) 0 %; Diff Status Complete; Eosinophils % (Manual) 0 % (0.0-4.3); Platelet Estimate Consistent w Auto; RBC Morphology Normal
--- NOTE | 2017-04-26 13:20 | Progress Note ---
Assessment and Plan Assessment and plan: Patient is a 46-year-old woman history of asthma and tobacco dependence who presents with shortness of breath and cough. -Severe persistent acute asthma exacerbation: IV steroids, nebulizer which failed at home -Tobacco dependency: stopping discussed -Acute bronchitis versus early pneumonia: Continue IV Levaquin -Suspected early sepsis due to bronchitis plus or minus pneumonia: Continue antibiotics History Interval history: Patient was seen and examined. Follow-up on current diagnosis. Overnight uneventful. Patient denies any chest pain, nausea/vomiting or severe headaches. Imaging, nursing note, chart, labs and old chart reviewed. Discussed with patient. Patient still has shortness of productive yellow cough Hospitalist Physical - Physical exam Narrative exam: GEN: WDWN, NAD, AWAKE, ALERT, ORIENTATED 3 HEENT: NCAT, EOMI, PERRL, OP Clear NECK: supple, no adenopathy, no thyromegaly, no JVD CVS/HEART: Regular tachycardia, NORMAL S1S2, NO JVD, pulses present bilaterally CHEST/LUNGS: Bilateral wheezing, Symmetrical chest expansion, diminished but adequate air entry bilaterally GI/Abdomen: soft, NTND, good bowel sounds, no guarding or rebound /Bladder: no suprapubic tenderness, no CVA or paraspinal tenderness EXT/Skin: no c/c/e, no obvious rash MSK: FROM x 4 Neuro: CN 2-12 grossly intact, no new focal deficits Psych: calm - Constitutional Vitals: Temp Pulse Resp BP Pulse Ox 98.6 F 107 H 16 98/60 99 04/26/17 09:52 04/26/17 09:59 04/26/17 09:59 04/26/17 09:52 04/26/17 09:52 Results - Labs CBC & Chem 7: 04/26/17 06:39 04/26/17 06:39 Labs: Laboratory Last Values WBC 17.1 K/mm3 (4.5-11.0) H 04/26/17 06:39 RBC 4.63 M/mm3 (3.65-5.03) 04/26/17 06:39 Hgb 12.9 gm/dl (10.1-14.3) 04/26/17 06:39 Hct 39.9 % (30.3-42.9) 04/26/17 06:39 MCV 86 fl (79-97) 04/26/17 06:39 MCH 28 pg (28-32) 04/26/17 06:39 MCHC 32 % (30-34) 04/26/17 06:39 RDW 15.6 % (13.2-15.2) H 04/26/17 06:39 Plt Count 228 K/mm3 (140-440) 04/26/17 06:39 Lymph % (Auto) 12.4 % (13.4-35.0) L 04/25/17 13:34 [place] % (Auto) 3.2 % (0.0-7.3) 04/25/17 13:34 Eos % (Auto) 1.3 % (0.0-4.3) 04/25/17 13:34 Baso % (Auto) 0.7 % (0.0-1.8) 04/25/17 13:34 Lymph # 1.3 K/mm3 (1.2-5.4) 04/25/17 13:34 [place] # 0.3 K/mm3 (0.0-0.8) 04/25/17 13:34 Eos # 0.1 K/mm3 (0.0-0.4) 04/25/17 13:34 Baso # 0.1 K/mm3 (0.0-0.1) 04/25/17 13:34 Add Manual Diff Complete 04/26/17 06:39 Total Counted 100 04/26/17 06:39 Seg Neutrophils % Platform Material Handler Manager 04/26/17 06:39 Seg Neuts % (Manual) 88.0 % (40.0-70.0) H 04/26/17 06:39 Band Neutrophils % 6.0 % 04/26/17 06:39 Lymphocytes % (Manual) 4.0 % (13.4-35.0) L 04/26/17 06:39 Reactive Lymphs % (Man) 0 % 04/26/17 06:39 Monocytes % (Manual) 2.0 % (0.0-7.3) 04/26/17 06:39 Eosinophils % (Manual) 0 % (0.0-4.3) 04/26/17 06:39 Basophils % (Manual) 0 % (0.0-1.8) 04/26/17 06:39 Metamyelocytes % 0 % 04/26/17 06:39 Myelocytes % 0 % 04/26/17 06:39 Promyelocytes % 0 % 04/26/17 06:39 Blast Cells % 0 % 04/26/17 06:39 Nucleated RBC % Not Reportable 04/26/17 06:39 Seg Neutrophils # 8.9 K/mm3 (1.8-7.7) H 04/25/17 13:34 Seg Neutrophils # Man 15.0 K/mm3 (1.8-7.7) H 04/26/17 06:39 Band Neutrophils # 1.0 K/mm3 04/26/17 06:39 Lymphocytes # (Manual) 0.7 K/mm3 (1.2-5.4) L 04/26/17 06:39 Abs React Lymphs (Man) 0.0 K/mm3 04/26/17 06:39 Monocytes # (Manual) 0.3 K/mm3 (0.0-0.8) 04/26/17 06:39 Eosinophils # (Manual) 0.0 K/mm3 (0.0-0.4) 04/26/17 06:39 Basophils # (Manual) 0.0 K/mm3 (0.0-0.1) 04/26/17 06:39 Metamyelocytes # 0.0 K/mm3 04/26/17 06:39 Myelocytes # 0.0 K/mm3 04/26/17 06:39 Promyelocytes # 0.0 K/mm3 04/26/17 06:39 Blast Cells # 0.0 K/mm3 04/26/17 06:39 WBC Morphology Not Reportable 04/26/17 06:39 Hypersegmented Neuts Not Reportable 04/26/17 06:39 Hyposegmented Neuts Not Reportable 04/26/17 06:39 Hypogranular Neuts Not Reportable 04/26/17 06:39 Smudge Cells Not Reportable 04/26/17 06:39 Toxic Granulation Not Reportable 04/26/17 06:39 Toxic Vacuolation Not Reportable 04/26/17 06:39 Dohle Bodies Not Reportable 04/26/17 06:39 Pelger-Huet Anomaly Not Reportable 04/26/17 06:39 Cathy Rods Not Reportable 04/26/17 06:39 Platelet Estimate Consistent w auto 04/26/17 06:39 Clumped Platelets Not Reportable 04/26/17 06:39 Plt Clumps, EDTA Not Reportable 04/26/17 06:39 Large Platelets Not Reportable 04/26/17 06:39 Giant Platelets Not Reportable 04/26/17 06:39 Platelet Satelliting Not Reportable 04/26/17 06:39 Plt Morphology Comment Not Reportable 04/26/17 06:39 RBC Morphology Normal 04/26/17 06:39 Dimorphic RBCs Not Reportable 04/26/17 06:39 Polychromasia Not Reportable 04/26/17 06:39 Hypochromasia Not Reportable 04/26/17 06:39 Poikilocytosis Not Reportable 04/26/17 06:39 Anisocytosis Not Reportable 04/26/17 06:39 Microcytosis Not Reportable 04/26/17 06:39 Macrocytosis Not Reportable 04/26/17 06:39 Spherocytes Not Reportable 04/26/17 06:39 Pappenheimer Bodies Not Reportable 04/26/17 06:39 Sickle Cells Not Reportable 04/26/17 06:39 Target Cells Not Reportable 04/26/17 06:39 Tear Drop Cells Not Reportable 04/26/17 06:39 Ovalocytes Not Reportable 04/26/17 06:39 Helmet Cells Not Reportable 04/26/17 06:39 [place] Bodies Not Reportable 04/26/17 06:39 [place] Rings Not Reportable 04/26/17 06:39 Laurie Cells Not Reportable 04/26/17 06:39 Bite Cells Not Reportable 04/26/17 06:39 Crenated Cell Not Reportable 04/26/17 06:39 Elliptocytes Not Reportable 04/26/17 06:39 Acanthocytes (Spur) Not Reportable 04/26/17 06:39 Rouleaux Not Reportable 04/26/17 06:39 Hemoglobin C Crystals Not Reportable 04/26/17 06:39 Schistocytes Not Reportable 04/26/17 06:39 Malaria parasites Not Reportable 04/26/17 06:39 Oleg Bodies Not Reportable 04/26/17 06:39 Hem Pathologist Commnt No 04/26/17 06:39 Sodium 141 mmol/L (137-145) 04/26/17 06:39 Potassium 4.2 mmol/L (3.6-5.0) 04/26/17 06:39 Chloride 105.9 mmol/L (98-107) 04/26/17 06:39 Carbon Dioxide 22 mmol/L (22-30) 04/26/17 06:39 Anion Gap 17 mmol/L 04/26/17 06:39 BUN 9 mg/dL (7-17) 04/26/17 06:39 Creatinine 0.7 mg/dL (0.7-1.2) 04/26/17 06:39 Estimated GFR > 60 ml/min 04/26/17 06:39 BUN/Creatinine Ratio 13 % 04/26/17 06:39 Glucose 131 mg/dL (65-100) H 04/26/17 06:39 Calcium 8.6 mg/dL (8.4-10.2) 04/26/17 06:39 Troponin T < 0.010 ng/mL (0.00-0.029) 04/25/17 13:34
[2017-04-26] MEDS ORDERED: LOVENOX SUB-Q SCH (22:00)
[2017-04-27] MEDS: DUONEB *Not for PRN Use IH SCH ×3 (02:01→13:58)
[2017-04-27 07:27] LABS: Hematocrit 39.9 % (30.3-42.9); Hemoglobin 12.6 gm/dl (10.1-14.3); Mean Corpuscular HGB Conc 32 % (30-34); Mean Corpuscular Hemoglobin 27 pg (28-32); Mean Corpuscular Volume 86 fl (79-97); Platelet Count 227 K/mm3 (140-440); Red Blood Count 4.63 M/mm3 (3.65-5.03); Red Cell Distribution Width 16.1 % (13.2-15.2)
[2017-04-27 07:30] LABS: White Blood Count 24.3 K/mm3 (4.5-11.0)
[2017-04-27 07:50] LABS: Alanine Aminotransferase 16 units/L (7-56); Albumin 3.3 g/dL (3.9-5); Albumin/Globulin Ratio 1.2 %; Alkaline Phosphatase 49 units/L (35-129); BUN/Creatinine Ratio 20; Blood Urea Nitrogen 16 mg/dL (7-17); Calcium 8.7 mg/dL (8.4-10.2); Carbon Dioxide 24 mmol/L (22-30); Glucose 113 mg/dL (65-100); Total Protein 6.1 g/dL (6.3-8.2)
[2017-04-27 07:51] LABS: Anion Gap 17 mmol/L; Chloride 103.7 mmol/L (98-107); Potassium 4.7 mmol/L (3.6-5.0); Sodium 140 mmol/L (137-145)
[2017-04-27 08:37] VITALS: BP 115/70
[2017-04-27] MEDS: PEPCID PO SCH (10:02)
[2017-04-27] MEDS: LEVAQUIN 750MG/150ML 750 MG/150 ML BAG IV SCH (10:02)
[2017-04-27] MEDS ORDERED: PROVENTIL IH PRN (11:02)
--- NOTE | 2017-04-27 14:31 | Discharge Summary ---
Providers - Providers Date of Admission: 04/25/17 19:30 Date of discharge: 04/27/17 Attending physician: HAO RICHARDSON Primary care physician: JOEL KEARNEY MD Hospitalization Condition: Stable Hospital course: Patient is a 46-year-old woman history of asthma and tobacco dependence who presents with shortness of breath and cough. -Severe persistent acute asthma exacerbation: IV steroids, nebulizer which failed at home -Tobacco dependency: stopping discussed -Acute bronchitis versus early pneumonia: Continue IV Levaquin -Suspected early sepsis due to bronchitis plus or minus pneumonia: Continue antibiotics Disposition: DC-01 TO HOME OR SELFCARE Time spent for discharge: 37 min Core Measure Documentation - Palliative Care Palliative Care/ Comfort Measures: Not Applicable - Core Measures Any of the following diagnoses?: none - VTE Discharge Requirements Deep Vein Thrombosis/Pulmonary Embolism Present on Admission: No Has pt received <5 days of overlap therapy or INR<2.0: No Anticoagulant overlap therapy prescribed at discharge: No Contraindication No Overlap Therapy order at DC: Not Indicated Exam - Physical Exam Narrative exam: GEN: WDWN, NAD, AWAKE, ALERT, ORIENTATED 3 HEENT: NCAT, EOMI, PERRL, OP Clear NECK: supple, no adenopathy, no thyromegaly, no JVD CVS/HEART: Regular tachycardia, NORMAL S1S2, NO JVD, pulses present bilaterally CHEST/LUNGS: Bilateral wheezing, Symmetrical chest expansion, diminished but adequate air entry bilaterally GI/Abdomen: soft, NTND, good bowel sounds, no guarding or rebound /Bladder: no suprapubic tenderness, no CVA or paraspinal tenderness EXT/Skin: no c/c/e, no obvious rash MSK: FROM x 4 Neuro: CN 2-12 grossly intact, no new focal deficits Psych: calm - Constitutional Vitals: Temp Pulse Resp BP Pulse Ox 98.7 F 101 H 18 115/70 98 04/27/17 07:59 04/27/17 10:06 04/27/17 10:06 04/27/17 07:59 04/27/17 07:59 Plan Activity: up only with assistance, other (no strenous activities) Diet: low salt Follow up with: PRIMARY CARE, [Primary Care Provider] - 3-5 Days Prescriptions: Budesonide [Pulmicort Respules] 0.5 mg IH Q12HRT #1 nebu Famotidine [Pepcid] 20 mg PO BID #14 day Ipratropium/Albuterol Sulfate [DUONEB *Not for PRN Use*] 1 ampul IH Q6HRT #7 day Levofloxacin [Levaquin TAB] 750 mg PO DAILY #5 day methylPREDNISolone [Medrol Dose Jarett] 1 dose PO DAILY #1 pack
[2017-04-28] MEDS ORDERED: LEVAQUIN PO SCH (10:00)
== END 2017-04-27 14:00 | disposition home or self-care (01) | DRG 871 ==
LOC: ED 12:51 → 3A 19:30
PROVIDERS: ADMIT Internal Medicine; ATTEND Internal Medicine
DX: A41.9 Sepsis, unspecified organism (principal); J18.9 Pneumonia, unspecified organism; J45.51 Severe persistent asthma with (acute) exacerbation; F17.200 Nicotine dependence, unspecified, uncomplicated; J20.9 Acute bronchitis, unspecified; E66.01 Morbid (severe) obesity due to excess calories; Z79.51 Long term (current) use of inhaled steroids; Z79.899 Other long term (current) drug therapy; Z82.49 Family history of ischemic heart disease and other diseases of the circulatory system; Z68.22 Body mass index [BMI] 22.0-22.9, adult
CPT/HCPCS: 36415; 71020; 80048; 80053; 84484; 85007; 85025; 85027; 93005; 93010; 94640; 96374; 99406; J0456; J1650; J1956; J2930; J7050

== ENCOUNTER 2018-11-09 10:47 | Emergency (ER) | payer OTHER ==
[2018-11-09 10:58] VITALS: BP 99/73
[2018-11-09] MEDS ORDERED: IBUPROFEN PO ONE (11:58)
--- NOTE | 2018-11-09 12:04 | XRay Report ---
RIGHT RIBS, 3 VIEWS: History: pain. Routine views of the rib cage demonstrate normal mineralization with no significant contour abnormalities, fractures or destructive lesions. PA view of the chest demonstrates no underlying cardiopulmonary abnormalities, fluid or pneumothorax. IMPRESSION: Unremarkable right rib series.
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
== END 2018-11-09 14:35 | disposition home or self-care (01) ==
LOC: ED 10:47
DX: S20.211A Contusion of right front wall of thorax, initial encounter (principal); R51 Headache; J44.9 Chronic obstructive pulmonary disease, unspecified; F17.200 Nicotine dependence, unspecified, uncomplicated; Z79.899 Other long term (current) drug therapy; X58.XXXA Exposure to other specified factors, initial encounter; Y93.89 Activity, other specified; Y92.89 Other specified places as the place of occurrence of the external cause; Y99.8 Other external cause status
CPT/HCPCS: 99283